=== PATIENT | male | born 1955 | race Caucasian/White ===

== ENCOUNTER 2024-09-01 19:51 | Inpatient (IN) | payer MEDICARE, OTHER ==
[~2024-09-01] VITALS: Ht 165.1 cm; Wt 53.1 kg
[2024-09-01 21:20] LABS: BASOPHILS # (AUTO) 0.1 K/uL (0.0-0.2); BASOPHILS % (AUTO) 1.2 % (0.0-2.0); EOSINOPHILS # (AUTO) 0.2 K/uL (0.0-0.7); EOSINOPHILS % (AUTO) 2.4 % (0.0-6.0); HEMATOCRIT 41 % (39-51); LYMPHOCYTES # (AUTO) 1.7 K/uL (0.8-4.8); LYMPHOCYTES % (AUTO) 20.7 % (20.0-44.0); MEAN CORPUSCULAR HEMOGLOBIN 32 PG (26.0-33.0); MEAN CORPUSCULAR HGB CONC 34 g/dl (31.0-36.0); MEAN CORPUSCULAR VOLUME 95 fL (80-96); MONOCYTES # (AUTO) 0.7 K/uL (0.1-1.30); NEUTROPHILS # (AUTO) 5.4 K/uL (1.8-8.9); NEUTROPHILS % (AUTO) 66.7 % (43.0-81.0); PLATELET COUNT (AUTO) 298 K/uL (150-450); RED BLOOD CELL COUNT(AUTO) 4.31 MIL/uL (4.5-6.0); RED CELL DISTRIBUTION WIDTH 13.9 % (11.5-15.0); WHITE BLOOD COUNT (AUTO) 8.2 K/uL (4.3-11.0)
[2024-09-01 21:31] LABS: APPEARANCE,URINE Clear (CLEAR); BILIRUBIN,URINE Negative (NEGATIVE); BLOOD, URINE Trace-lysed Ery/uL (NEGATIVE); COLOR,URINE YELLOW (YELLOW); KETONES,URINE Negative (NEGATIVE); LEUKOCYTE ESTERASE ,URINE Trace (NEGATIVE); NITRITE, URINE Negative (NEGATIVE); PH,URINE 6.5 (5.0-8.0); PROTEIN,URINE Negative (NEGATIVE); UGLUCOSE Negative (NEGATIVE); UROBILINOGEN,URINE 0.2 EU/dL (0.2)
[2024-09-01 21:42] LABS: ADD URINE CULTURE NO; BACTERIA,URINE 1+ /HPF (None Seen); RBC,URINE 0-2 /HPF (0-2); SQUAMOUS EPITHELIAL CELL,UR Few /HPF (None Seen); WBC,URINE 0-2 /HPF (0-3)
[2024-09-01 21:45] LABS: AMPHETAMINE, URINE NEGATIVE (NEGATIVE); BARBITURATE, URINE NEGATIVE (NEGATIVE); BENZODIAZEPINE, URINE NEGATIVE (NEGATIVE); CANNABINOID, URINE NEGATIVE (NEGATIVE); COCCAINE, URINE NEGATIVE (NEGATIVE); OPIATE, URINE NEGATIVE (NEGATIVE); PHENCYCLIDINE SCREEN,URINE NEGATIVE (NEGATIVE)
[2024-09-01 21:47] LABS: ALANINE AMINOTRANSFERASE 11 U/L (12-78); ALBUMIN 3.2 g/dL (3.4-5.0); ALCOHOL, BLOOD < 3 mg/dL (0-10); ALKALINE PHOSPHATASE 111 U/L (46-116); ASPARTATE AMINOTRANSFERASE 13 U/L (15-37); BILIRUBIN,DIRECT 0.1 mg/dL (0.0-0.2); BILIRUBIN,TOTAL 0.3 mg/dL (0.2-1.0); CALCIUM, SERUM 9.3 mg/dL (8.5-10.1); CARBON DIOXIDE 31 mmol/L (21-32); CHLORIDE 105 mmol/L (98-107); CREATININE 0.6 mg/dL (0.6-1.3); GLUCOSE 95 mg/dL (74-106); POTASSIUM 4.2 mmol/L (3.5-5.1); SODIUM SERUM 139 mmol/L (136-145); TOTAL PROTEIN, SERUM 6.6 g/dL (6.4-8.2); UREA NITROGEN, BLOOD 6 mg/dL (7-18)
[2024-09-01 21:53] LABS: ACETAMINOPHEN 0 ug/ml (10-30); SALICYLATE 2.7 mg/dL (2.8-20.0)
[2024-09-02 00:17] VITALS: O2SAT 95
[2024-09-02] MEDS ORDERED: MINE3.5O OP (00:46)
[2024-09-02] MEDS ORDERED: ARIP30TA3 PO (00:46)
[2024-09-02] MEDS ORDERED: GABA600T12 PO (00:46)
[2024-09-02] MEDS ORDERED: ACET-2030 PO (00:46)
[2024-09-02] MEDS ORDERED: THIA100T74 PO (00:46)
[2024-09-02] MEDS ORDERED: DIVA250T PO (00:46)
[2024-09-02] MEDS ORDERED: HYDR-3976 GT (00:46)
[2024-09-02] MEDS ORDERED: NICO-627 TP (00:46)
[2024-09-02] MEDS ORDERED: ESCI20TA PO (00:46)
[2024-09-02] MEDS ORDERED: BISA10SU61 RC (00:46)
[2024-09-02] MEDS ORDERED: POLY250017 PO (00:46)
[2024-09-02] MEDS ORDERED: QUET100T PO (00:46)
[2024-09-02] MEDS ORDERED: TAMS-12 PO (00:46)
[2024-09-02] MEDS ORDERED: BENZ2AMP3 PO (00:46)
[2024-09-02] MEDS ORDERED: FINA5TAB11 PO (00:46)
[2024-09-02] MEDS ORDERED: MAGNESIUM HYDROXIDE 30 ML UDC PO PRN (01:30)
[2024-09-02] MEDS ORDERED: ZOLPIDEM TARTRATE 5 MG TABLET PO PRN (01:30)
[2024-09-02] MEDS ORDERED: NA P133E RC (01:48)
[2024-09-02] MEDS ORDERED: MELA5TAB PO (01:49)
[2024-09-02] MEDS ORDERED: HYDR-4303 PO (01:52)
[2024-09-02] MEDS ORDERED: MINE7OIN OP (01:54)
[2024-09-02] MEDS ORDERED: SENN1TAB77 PO (01:55)
[2024-09-02] MEDS ORDERED: LORAZEPAM 1 MG TABLET PO PRN (02:00)
[2024-09-02 02:20] VITALS: BP 148/97; TEMP 98.6; O2SAT 99
[2024-09-02] MEDS: BLOOD SUGAR DIAGNOSTIC 1 EACH STRIP IN ONE (02:40)
[2024-09-02 08:00] VITALS: BP 116/80; TEMP 98.7; O2SAT 95
[2024-09-02] MEDS: NICOTINE PATCH (21MG) 21 MG PATCH.TD24 TD SCH (08:37)
[2024-09-02] MEDS: POLYETHYLENE GLYCOL 3350 17 GM POWD.PACK PO SCH (08:37)
[2024-09-02] MEDS: FINASTERIDE (5 MG) 5 MG TABLET PO SCH (08:37)
[2024-09-02] MEDS: THIAMINE HCL 100 MG TABLET PO SCH (08:37)
[2024-09-02] MEDS: GABAPENTIN 300 MG CAPSULE PO SCH (13:35)
[2024-09-02 16:00] VITALS: BP 108/74; TEMP 98; O2SAT 97
[2024-09-02] MEDS: risperiDONE 1 MG TABLET PO SCH (16:43)
[2024-09-02] MEDS: BENZTROPINE MESYLATE (1 MG) 1 MG TABLET PO SCH (16:43)
[2024-09-02] MEDS: TAMSULOSIN 0.4 MG CAP.SR.24H PO SCH (17:10)
[2024-09-02 20:33] VITALS: BP 110/76; TEMP 98; O2SAT 97
[2024-09-02] MEDS: DIVALPROEX SODIUM 250 MG TABLET.DR PO SCH (21:10)
[2024-09-03 06:52] LABS: BASOPHILS # (AUTO) 0.1 K/uL (0.0-0.2); BASOPHILS % (AUTO) 0.7 % (0.0-2.0); EOSINOPHILS # (AUTO) 0.3 K/uL (0.0-0.7); HEMATOCRIT 40 % (39-51); HEMOGLOBIN 13.7 g/dL (13.5-17.5); LYMPHOCYTES # (AUTO) 1.6 K/uL (0.8-4.8); LYMPHOCYTES % (AUTO) 18.5 % (20.0-44.0); MEAN CORPUSCULAR HEMOGLOBIN 32 PG (26.0-33.0); MEAN CORPUSCULAR HGB CONC 34 g/dl (31.0-36.0); MEAN CORPUSCULAR VOLUME 95 fL (80-96); MONOCYTES # (AUTO) 0.7 K/uL (0.1-1.30); MONOCYTES % (AUTO) 8.1 % (2.0-12.0); NEUTROPHILS # (AUTO) 6.1 K/uL (1.8-8.9); NEUTROPHILS % (AUTO) 69.7 % (43.0-81.0); PLATELET COUNT (AUTO) 296 K/uL (150-450); RED BLOOD CELL COUNT(AUTO) 4.25 MIL/uL (4.5-6.0); RED CELL DISTRIBUTION WIDTH 13.8 % (11.5-15.0); WHITE BLOOD COUNT (AUTO) 8.8 K/uL (4.3-11.0)
[2024-09-03 07:03] LABS: CALCIUM, SERUM 8.2 mg/dL (8.5-10.1); POTASSIUM 4.4 mmol/L (3.5-5.1)
[2024-09-03 07:16] LABS: CREATININE 0.5 mg/dL (0.6-1.3)
[2024-09-03 08:00] VITALS: BP 112/89; TEMP 98.6; O2SAT 97
[2024-09-03] MEDS: PAROXETINE HCL 10 MG TABLET PO SCH (08:50)
[2024-09-03] MEDS: ACETAMINOPHEN 325 MG TABLET PO PRN (14:12)
[2024-09-03 15:58] VITALS: BP 129/83; TEMP 98.2; O2SAT 97
[2024-09-03 20:38] VITALS: BP 114/78; TEMP 98.4; O2SAT 95
[2024-09-04 08:00] VITALS: BP 123/70; TEMP 97.9; O2SAT 99
[2024-09-04 16:00] VITALS: BP 113/81; TEMP 97.9; O2SAT 97
[2024-09-04 20:08] VITALS: BP 102/75; TEMP 97.9; O2SAT 98
[2024-09-05] MEDS: LORAZEPAM 1 MG TABLET PO PRN (05:52)
[2024-09-05 08:00] VITALS: BP 98/65; TEMP 97.6; O2SAT 94
[2024-09-05] MEDS: HYDROCODONE/APAP 5/325MG TABLET PO PRN (13:05)
[2024-09-05 16:00] VITALS: BP 99/71; TEMP 97.6; O2SAT 97
[2024-09-05 20:00] VITALS: BP 128/76; TEMP 98; O2SAT 97
[2024-09-05] MEDS: ZOLPIDEM TARTRATE 5 MG TABLET PO PRN (23:52)
[2024-09-06 08:00] VITALS: BP 131/94; TEMP 98.7; O2SAT 97
[2024-09-06 16:00] VITALS: BP 104/78; TEMP 97.9; O2SAT 98
[2024-09-06 20:00] VITALS: BP 131/90; TEMP 98.1; O2SAT 97
[2024-09-07 08:00] VITALS: BP 157/90; TEMP 98.6; O2SAT 100
[2024-09-07 16:00] VITALS: BP 112/82; TEMP 98.3; O2SAT 100
[2024-09-07 20:00] VITALS: BP 120/78; TEMP 97.9; O2SAT 100
[2024-09-07] MEDS: MAG HYDROX/AL HYDROX/SIMETH 30 ML UDC PO PRN (23:46)
[2024-09-08 08:00] VITALS: BP 139/85; TEMP 98.6; O2SAT 98
[2024-09-08 16:00] VITALS: BP 137/85; TEMP 97.6; O2SAT 98
[2024-09-08 20:00] VITALS: BP 126/87; TEMP 97.8; O2SAT 98
[2024-09-09 08:00] VITALS: BP 108/55; TEMP 98.1; O2SAT 96
[2024-09-09 16:00] VITALS: BP 92/69; TEMP 97.5; O2SAT 99
[2024-09-09 20:28] VITALS: BP 116/71; TEMP 98; O2SAT 96
[2024-09-10] MEDS: ENSURE ENLIVE CHOC 237 ML CAN PO SCH (08:16)
[2024-09-10 21:25] VITALS: BP 117/88; TEMP 98.6; O2SAT 99
[2024-09-11 08:00] VITALS: BP 128/79; TEMP 98.7; O2SAT 98
[2024-09-11] MEDS ORDERED: ONDANSETRON 4 MG TAB.RAPDIS SL PRN (09:30)
[2024-09-11 16:00] VITALS: BP 102/72; TEMP 98.7; O2SAT 98
[2024-09-11] MEDS: risperiDONE 1 MG TABLET PO SCH (17:43)
[2024-09-11 20:00] VITALS: BP 113/69; TEMP 97.7; O2SAT 97
[2024-09-11] MEDS: FAMOTIDINE (20 MG) 20 MG TABLET PO SCH (21:11)
[2024-09-12 08:00] VITALS: BP 129/73; TEMP 98.7; O2SAT 96
[2024-09-12] MEDS: OLANZAPINE 10 MG VIAL IM ONE (11:12)
[2024-09-12] MEDS: risperiDONE 1 MG TABLET PO SCH (12:53)
[2024-09-12 16:00] VITALS: BP 123/84; TEMP 98.7; O2SAT 96
[2024-09-12 20:00] VITALS: BP 117/82; TEMP 98; O2SAT 100
[2024-09-13 08:00] VITALS: BP 112/91; TEMP 97.7; O2SAT 99
[2024-09-13] MEDS: DIVALPROEX SODIUM 250 MG TABLET.DR PO SCH (12:27)
[2024-09-13 16:03] VITALS: BP 107/76; TEMP 97.7; O2SAT 95
[2024-09-13 20:00] VITALS: BP 115/81; TEMP 98.1; O2SAT 95
[2024-09-14 08:00] VITALS: BP 111/67; TEMP 98.7; O2SAT 96
[2024-09-14 16:00] VITALS: BP 115/77; TEMP 98; O2SAT 100
[2024-09-14 20:00] VITALS: BP 118/79; TEMP 97.8; O2SAT 97
[2024-09-15 08:00] VITALS: BP 133/88; TEMP 97.8; O2SAT 97
[2024-09-15] MEDS: risperiDONE 1 MG TABLET PO SCH (12:31)
[2024-09-15 16:00] VITALS: BP 108/74; TEMP 97.9; O2SAT 97
[2024-09-15] MEDS: LITHIUM CARBONATE 150 MG CAPSULE PO SCH (16:51)
[2024-09-15 20:00] VITALS: BP 119/67; TEMP 97.6; O2SAT 99
[2024-09-16 08:45] VITALS: BP 138/95; TEMP 97.4; O2SAT 98
[2024-09-16 16:00] VITALS: BP 130/93; TEMP 98; O2SAT 95
[2024-09-16 20:00] VITALS: BP 110/68; TEMP 97.4; O2SAT 99
[2024-09-17 08:00] VITALS: BP 114/70; TEMP 98; O2SAT 99
[2024-09-17 16:08] VITALS: BP 97/62; TEMP 97.8; O2SAT 94
[2024-09-17 20:00] VITALS: BP 112/65; TEMP 97.8; O2SAT 98
[2024-09-18 08:00] VITALS: BP 115/77; TEMP 98.2; O2SAT 98
[2024-09-18 15:51] VITALS: BP 106/75; TEMP 98.2; O2SAT 99
[2024-09-18 21:04] VITALS: BP 117/77; TEMP 98; O2SAT 98
[2024-09-19 08:00] VITALS: BP 108/78; TEMP 98.2; O2SAT 96
[2024-09-19 16:00] VITALS: BP 114/78; TEMP 98; O2SAT 99
[2024-09-19] MEDS: DIVALPROEX SODIUM 250 MG TABLET.DR PO SCH (17:04)
[2024-09-19 21:55] VITALS: BP 127/90; TEMP 98.1; O2SAT 98
[2024-09-20 08:00] VITALS: BP 111/76; TEMP 97.5; O2SAT 96
[2024-09-20 16:00] VITALS: BP 100/65; TEMP 98.2; O2SAT 95
== END 2024-09-20 18:20 | DRG 885 ==
LOC: ER 19:59 → GPS 23:54
PROVIDERS: ADMIT Psychiatry & Neurology Psychiatry; ATTEND Internal Medicine
PROC: 0HBRXZZ Excision of Toe Nail, External Approach (ICD-10-PCS; principal; 2024-09-05)
DX: F25.0 Schizoaffective disorder, bipolar type (principal); F29 Unspecified psychosis not due to a substance or known physiological condition; J44.9 Chronic obstructive pulmonary disease, unspecified; B35.1 Tinea unguium; F39 Unspecified mood [affective] disorder; F41.9 Anxiety disorder, unspecified; L60.3 Nail dystrophy; Z20.822 Contact with and (suspected) exposure to COVID-19; Z73.6 Limitation of activities due to disability; F17.210 Nicotine dependence, cigarettes, uncomplicated; S90.121A Contusion of right lesser toe(s) without damage to nail, initial encounter; X58.XXXA Exposure to other specified factors, initial encounter; Y93.9 Activity, unspecified; Y92.129 Unspecified place in nursing home as the place of occurrence of the external cause; Z86.73 Personal history of transient ischemic attack (TIA), and cerebral infarction without residual deficits
CPT/HCPCS: 36415; 80048-TC; 80061-TC; 80076-TC; 80164-TC; 80178-TC; 81001; 82962-TC; 85025-TC; 87081-TC; 97112-TC; 97116-TC; 97530-TC; G0480; J3490